=== PATIENT | male | born 1985 | race Two or more races ===

== ENCOUNTER 2016-05-01 00:15 | Emergency (ER) | payer MEDICAID ==
[2016-05-01] MEDS ORDERED: EPINEPHRINE INJ/PF 1 MG/1 ML AMPULE ONE (00:56)
[2016-05-01] MEDS ORDERED: PREDNISONE 20 MG TABLET PO ONE ×2 (00:57→00:59)
[2016-05-01] MEDS ORDERED: EPINEPHRINE INJ/PF 1 MG/1 ML AMPULE IM ONE (00:57)
[2016-05-01] MEDS ORDERED: NORMAL SALINE 1000 ML 1,000 ML IV ONE (00:59)
--- NOTE | 2016-05-01 01:00 | ER Document Report ---
ED General - General Chief Complaint: Allergic Reaction Stated Complaint: POSSIBLE ALLERGIC REACTION Notes: Patient is a 30-year-old male with multiple mental health diagnoses who presents with 4 hours of progressively worsening diffuse body hives, lip swelling, and shortness of breath. Denies any chest pain, nausea, vomiting, or syncope. He tried Benadryl at home without any improvement of his symptoms. Nothing worsens the symptoms. She denies any history of similar symptoms in the past. He has not seen his primary care doctor regarding today's concerns. He is uncertain what he has been exposed to. He did try guanfacine for a cold. TRAVEL OUTSIDE OF THE [place] IN LAST 30 DAYS: No Past Medical History - General Information source: Patient - Social History Smoking Status: Current Every Day Smoker Chew tobacco use (# tins/day): No Frequency of alcohol use: Occasional Drug Abuse: None Lives with: Family Family History: Reviewed & Not Pertinent Patient has suicidal ideation: No Patient has homicidal ideation: No Renal/ Medical History: Denies: Hx Peritoneal Dialysis Review of Systems - Review of Systems Notes: Constitutional: Negative for fever. HENT: Positive for lip swelling Eyes: Negative for visual changes. Cardiovascular: Negative for chest pain. Respiratory: Positive for shortness of breath. Gastrointestinal: Negative for abdominal pain, vomiting or diarrhea. Genitourinary: Negative for dysuria. Musculoskeletal: Negative for back pain. Skin: Positive for hives Neurological: Negative for headaches, weakness or numbness. 10 point ROS negative except as marked above and in HPI. Physical Exam - Vital signs Vitals: Temp Pulse Resp BP Pulse Ox 98.9 F 126 H 18 97/65 L 96 05/01/16 00:19 05/01/16 00:19 05/01/16 00:19 05/01/16 00:19 05/01/16 00:19 Interpretation: Hypotensive, Tachycardic Notes: PHYSICAL EXAMINATION: GENERAL: Appears uncomfortable, mildly short of breath HEAD: Atraumatic, normocephalic. EYES: Pupils equal round and reactive to light, extraocular movements intact, sclera anicteric, conjunctiva are normal. ENT: Upper and lower lids are diffusely edematous. Mild buccal mucosa swelling NECK: Normal range of motion, supple without lymphadenopathy LUNGS: Breath sounds clear to auscultation bilaterally and equal. No wheezes rales or rhonchi. HEART: Regular tachycardia without murmurs ABDOMEN: Soft, nontender, normoactive bowel sounds. No guarding, no rebound. No masses appreciated. EXTREMITIES: Normal range of motion, no pitting or edema. No cyanosis. NEUROLOGICAL: No focal neurological deficits. Moves all extremities spontaneously and on command. PSYCH: Normal mood, normal affect. SKIN: Warm, Dry, normal turgor, diffuse hives over the abdomen, chest wall and back Course - Re-evaluation Re-evalutation: 05/01/16 00:56 Patient presents with findings consistent with acute anaphylaxis. He has diffuse hives as well as angioedema and some mild buccal mucosa swelling. No stridor or wheezing. Immediately upon assessing this patient, I ordered 0.3 mg of intramuscular epinephrine. Triage vitals show tachycardia and hypotension. Will reassess again at 5 minutes. 05/01/16 01:34 After 2 rounds of IM 0.3 mg of epinephrine patient's lip swelling is much improved, hives or rescinding. His hypotension has resolved. He is beginning to feel better at this time. IV fluids, oral prednisone have also been administered. Will continue to monitor closely at this time. 05/01/16 02:17 Patient has not had complete resolution of his hives and lip swelling is almost completely resolved. He no longer feels short of breath. His blood pressure is normalized. We will continue to observe. 05/01/16 03:12 Patient continues to have complete resolution of his lip angioedema and hives. No wheezing. Has tolerated oral intake without difficulty.At this time will discharge with return precautions and follow-up recommendations. Verbal discharge instructions given a the bedside and opportunity for questions given. Medication warnings reviewed. Patient is in agreement with this plan and has verbalized understanding of return precautions and the need for primary care follow-up in the next 24-72 hours. - Vital Signs Vital signs: Temp Pulse Resp BP Pulse Ox 98.9 F 126 H 20 134/71 H 96 05/01/16 00:19 05/01/16 00:19 05/01/16 02:01 05/01/16 02:01 05/01/16 02:01 Critical Care Note - Critical Care Note Total time excluding time spent on procedures (mins): 35 Comments: Critical care time spent obtaining history from patient or surrogate, discussions with consultants, development of treatment plan with patient or surrogate, evaluation of patient's response to treatment, examination of patient , ordering and performing treatments and interventions, ordering and review of laboratory studies, re-evaluation of patient's condition, ordering and review of radiographic studies and review of old charts Discharge - Discharge Clinical Impression: Anaphylaxis Qualifiers: Encounter type: initial encounter Qualified Code(s): T78.2XXA - Anaphylactic shock, unspecified, initial encounter Condition: Good Disposition: HOME, SELF-CARE Additional Instructions: IF YOU DEVELOP DIFFICULTY BREATHING, RETURN OF HIVES, VOMITING, LIGHTHEADEDNESS , GIVE YOURSELF THE EPINEPHRINE SHOT IMMEDIATELY AND CALL 911. NEVER HESITATE TO GIVE YOURSELF THE EPINEPHRINE THIS CAN SAVE YOUR LIFE IF YOU ARE HAVE A SERIOUS ALLERGIC REACTION. Please also follow-up with your primary care doctor for consideration of allergy testing. Prescriptions: Epinephrine [Epipen 2-Evert] 0.3 mg IM ONCE PRN #1 packet PRN Reason:
[2016-05-01 04:04] VITALS: BP 126/80
== END 2016-05-01 04:05 | disposition home or self-care (01) ==
LOC: ER 00:15
DX: T78.2XXA Anaphylactic shock, unspecified, initial encounter (principal); F17.210 Nicotine dependence, cigarettes, uncomplicated
CPT/HCPCS: 99291; 96372; 96360; J0171; J7512; J7030